=== PATIENT | female | born 1990 | race Caucasian/White ===

== ENCOUNTER 2021-01-27 08:55 | Outpatient (CLI) | payer BC | END 2021-01-27 08:56 | disposition home or self-care (01) | LOC: CSHULT 08:55 | PROVIDERS: ATTEND Nurse Practitioner Family | DX: D84.821 Immunodeficiency due to drugs (principal); Z79.899 Other long term (current) drug therapy; N92.6 Irregular menstruation, unspecified; K50.00 Crohn's disease of small intestine without complications | CPT/HCPCS: 76770 ==